=== PATIENT | female | born 1945 | race Caucasian/White ===

== ENCOUNTER 2016-12-20 10:52 | Emergency (ER) | payer MEDICARE ==
[~2016-12-20] VITALS: Ht 170.2 cm; Wt 101.0 kg
[~2016-12-20 10:52] MED LIST: LATA.005%O EACH EYE; LISI-363 PO; LYRI50CA2 PO; OXYC1SOL5 PO; PRIL20TA2 PO; RIVA10 PO; Z.0.COMMODE-3:1; Z.0.WALKERFRONT
[2016-12-20 11:17] VITALS: BP 155/66; PULSE 81; RESP 16; TEMP 97.6; O2SAT 94
[2016-12-20] MEDS ORDERED: LISI-515 PO (11:42)
[2016-12-20] MEDS ORDERED: LACTCAP8 PO (11:42)
[2016-12-20] MEDS ORDERED: GABA300C5 PO (11:42)
[2016-12-20] MEDS ORDERED: OMEP40CA2 PO (11:42)
[2016-12-20] MEDS ORDERED: MULT-65 PO (11:42)
--- NOTE | 2016-12-20 12:22 | RADRPT ---
EXAM DATE/TIME: 12/20/2016 12:07 [place] COMPARISON: No previous studies available for comparison. INDICATIONS : Fell walking her dog, left elbow pain, limited ROM MEDICAL HISTORY : None. SURGICAL HISTORY : None. ENCOUNTER: Initial ACUITY: 1 day PAIN SCORE: 8/10 LOCATION: Left Elbow FINDINGS: There is an acute radial head fracture with approximately 2 mm of depression and step-off. The fractu re fragment is off of the lateral aspect of the radial head and shows some lateral downsloping is als o approximately 3 mm . Other bones of the left elbow are intact. Joint effusion noted. CONCLUSION: Depressed and laterally downsloping radial head fracture with approximately 2 mm of step-off and 3 mm of separation. Taurus Vaughn MD on December 20, 2016 at 12:18 Board Certified Radiologist. This report was verified electronically.
--- NOTE | 2016-12-20 12:39 | PD ---
HPI Chief Complaint: Fall Time Seen by Provider: 11:23 Travel History International Travel<30 days: No Contact w/Intl Traveler<30days: No Traveled to known affect area: No History of Present Illness HPI 71 year old female with left elbow pain s/p mechanical fall today. No head injury. No LOC. Denies any other injury. Denies headache, chest pain, SOB, ABD pain, paraesthesia or weakness in the extremities. symptoms severity moderate. Worse with movement & relieved with rest. PFSH Past Medical History Hx Anticoagulant Therapy: No Arthritis: Yes Cancer: No Cardiovascular Problems: No Diabetes: No Diminished Hearing: No Endocrine: No GERD: Yes Glaucoma: No Genitourinary: No Hepatitis: No Hiatal Hernia: No Hypertension: Yes Immune Disorder: No Musculoskeletal: Yes (ARTHRITIS) Neurologic: Yes (LEFT FOOT NEUROPATHY) Psychiatric: No Reproductive: No Respiratory: No Seizures: No Thyroid Disease: No Tetanus Vaccination: > 5 Years Influenza Vaccination: Yes Menopausal: Yes Past Surgical History AICD: No Eye Surgery: Yes (EXC. PTERYGIUM RIGHT EYE) Joint Replacement: Yes (LEFT KNEE) Pacemaker: No Social History Alcohol Use: Yes (RARELY) Tobacco Use: No Substance Use: No Allergies-Medications (Allergen,Severity, Reaction): Coded Allergies: No Known Allergies (Verified Adverse Reaction, Unknown, 12/20/16) Reported Meds & Prescriptions Reported Meds & Active Scripts Active Reported Multi-Vitamin Daily (Multiple Vitamin) 1 Tab Tab Unknown Dose PO DAILY Probiotic (Lactobacillus Acidophilus) 10 Billion Cell Cap Unknown Dose PO TIDAC Omeprazole 40 Mg Cap 40 Mg PO DAILY Lisinopril 20 Mg Tab 20 Mg PO DAILY Gabapentin 300 Mg Cap Unknown Dose PO DAILY Review of Systems Except as stated in HPI: all other systems reviewed are Neg Physical Exam Narrative GENERAL: alert well appearing female SKIN: Warm and dry. HEAD: Normocephalic. EYES: No scleral icterus. No injection or drainage. NECK: Supple, trachea midline. No JVD or lymphadenopathy. CARDIOVASCULAR: Regular rate and rhythm without murmurs, gallops, or rubs. RESPIRATORY: Breath sounds equal bilaterally. No accessory muscle use. GASTROINTESTINAL: Abdomen soft, non-tender, nondistended. MUSCULOSKELETAL: No cyanosis, or edema. LUE: pain with supination & pronation of the elbow. Mild tenderness. No deformity. Normal Sensation. 2+ distal pulses. BACK: Nontender without obvious deformity. No CVA tenderness. Data Data Last Documented VS Vital Signs Date Time Temp Pulse Resp B/P (MAP) Pulse Ox O2 Delivery O2 Flow Rate FiO2 12/20/16 11:28 18 94 Room Air 12/20/16 11:17 97.6 81 155/66 (95) Orders Orders Elbow, Complete (4 Vws) (12/20/16 ) Splint Or Brace Apply/Monitor (12/20/16 12:27) MDM Medical Decision Making Medical Screen Exam Complete: Yes Emergency Medical Condition: Yes Differential Diagnosis radial head fx, ulna fx, contusion, sprain Narrative Course 71 year old female with left elbow pain s/p fall today. She denies head injury or LOC. She denies any other injury. On exam pain with supination & pronation of the elbow. Mild tenderness. No deformity. Normal Sensation. xray show nondisplaced radial head fracture. Patient splinted. advised to follow up with ortho. She declines pain medication. Diagnosis Primary Impression: Radial head fracture, closed Qualified Codes: S52.125A - Nondisplaced fracture of head of left radius, initial encounter for closed fracture Referrals: Nnamdi Sosa MD, Mark C. MD Additional Instructions: Wear the splint until follow up with ortho ice & elevate the extremity take tylenol or motrin as needed. Take ultram for severe pain return if you develop new or worsening symptoms Disposition: 01 DISCHARGE HOME Condition: Stable Precious Pratt Dec 20, 2016 12:39
== END 2016-12-20 13:05 | disposition home or self-care (01) ==
LOC: PHEFT 10:52
DX: S52.125A Nondisplaced fracture of head of left radius, initial encounter for closed fracture (principal); W19.XXXA Unspecified fall, initial encounter; Y93.K1 Activity, walking an animal
CPT/HCPCS: 29105; 73080

== ENCOUNTER 2017-09-30 05:34 | Inpatient (IN) ==
[2017-09-30] MEDS ORDERED: Sugammadex Inj 200 MG/2 ML Vial IV.PUSH ONE (06:25)
[2017-09-30] MEDS ORDERED: Dexamethasone Inj 20 MG/5 ML Vial IV.PUSH ONE (06:26)
[2017-09-30] MEDS ORDERED: ceFAZolin 2 GM Premix Inj 2 GM/100 ML BAG IV.SIG ONE (06:29)
[2017-09-30] MEDS ORDERED: Dexamethasone Inj 20 MG/5 ML Vial ONE (06:29)
[2017-09-30] MEDS ORDERED: Metoprolol Tartrate 25 MG Tablet PO SCH (06:30)
[2017-09-30] MEDS ORDERED: Chlorhexidine Gluconate 2% 1 Pack (2 Cloths) TOPICAL SCH (06:30)
[2017-09-30] MEDS ORDERED: Chlorhexidine 4% Topical 120 APPLIC/120 ML Bottle TOPICAL SCH (06:30)
[2017-09-30] MEDS ORDERED: Sodium Chlor 0.9% Inj 250 ML ONE (06:30)
[2017-09-30] MEDS ORDERED: Sodium Chlor 0.9% Inj 73.07 ML, Ropivacaine 0.5% PF Inj 24.63 ML, Ketorolac Inj 30 MG, ... P-ARTICULR SCH ×5 (06:30)
[2017-09-30] MEDS ORDERED: Vancomycin Inj 1,000 MG in Sodium Chlor 0.9% Inj 250 ML IV.SIG SCH (06:33)
[2017-09-30] MEDS: fentaNYL Citrate Inj 100 MCG/2 ML Ampul ONE ×2 (06:40→09:05)
[2017-09-30] MEDS ORDERED: TRANEXAMIC ACID IV.SIG SCH ×2 (07:00→10:00)
[2017-09-30] MEDS ORDERED: ceFAZolin Inj 2,000 MG in Sodium Chlor 0.9% Inj 80 ML IV.SIG SCH (07:00)
[2017-09-30] MEDS ORDERED: Sodium Chlor 0.9% Inj 500 ML IV.SIG SCH (07:00)
[2017-09-30] MEDS ORDERED: SODIUM CHLOR 0.9% IV.SIG SCH ×2 (07:00→10:00)
--- NOTE | 2017-09-30 07:03 | P.DCO ---
- Physical Therapy Physical Therapy: Gait training, Transfer training, bed to chair Knee: Total knee Right Lower Extremity Weight Bearing: Weight bearing as tolerated Right Lower Extremity Range of Motion: Active ROM - Nursing Nursing: Patrica madera Dressing changes: Do not change dressing Additional instructions: First dressing change in the office - Certification Need for Home Health services: I have seen patient Chelsea Early on 09/30/17. My clinical findings support the need for the requested home health care services because: Need for Home Health Services: Limited ability to care for self, High risk of falls Homebound Certification: I certify that my clinical findings support that this patient is homebound because: Homebound Certification: Post-op weakness, Unsteady gait/balance
[2017-09-30] MEDS ORDERED: Aluminum/Magnesium/Simethacone Susp 30 ML UDC PO PRN (08:40)
[2017-09-30] MEDS ORDERED: Morphine Inj 4 MG/ML Vial IV.PUSH PRN (08:40)
[2017-09-30] MEDS ORDERED: Bisacodyl 10 MG Supp RECTAL PRN (08:40)
[2017-09-30] MEDS ORDERED: Post-op Orders (for Pharmacy) OTHER STA (08:40)
--- NOTE | 2017-09-30 08:45 | P.OP ---
- Preoperative Diagnosis (1) Osteoarthritis of right knee - Postoperative Diagnosis (1) Osteoarthritis of right knee Date of procedure: 09/30/17 Procedure: Right knee severe osteoarthritis Surgeon: Aston Heredia MD Pantograph Transferrer: TITO Borges The surgical procedure was assisted by my Advanced Registered Nurse Practitioner. My ANIMAL SITTER presence was necessary throughout this case for the manipulation and positioning of the surgical extremity. My ANIMAL SITTER was assisting me throughout the duration of this procedure. The skill set of an Advance Registered Nurse Practitioner was medically necessary to complete this procedure. During the surgical case, the surgical instrument repair specialist was working at the back table and the Advance Registered Nurse Practitioner was directly assisting me. Operation and Findings: IMPLANTS: DePuy Attune: Patella: size 32. Femur, posterior stabilized size 5. Tibia, rotating platform size 5. Tibial insert, rotating platform, posterior stabilized size 6 mm thickness. ESTIMATED BLOOD LOSS: 150 cc TOURNIQUET TIME: 32 minutes at 250 mmHg pressure. JUSTIFICATION FOR PROCEDURE: The patient has end-stage osteoarthritis to the knee. There is an attached conservative measures pathway form in the chart that describes the nonoperative measures that were undertaken prior to consideration of surgical management. The patient understood the risks and benefits of surgical management. See my office notes for further details PROCEDURE: The patient was brought back to the operative theatre. Adequate anesthesia was obtained. The patient received intravenous vancomycin and Ancef. The lower extremity was prepped and draped in the usual sterile fashion.The leg was exsanguinated, the tourniquet was raised. A standard anterior incision was performed followed by medial parapatellar arthrotomy was performed. End-stage arthritis was identified. Osteotomy of the patella was performed. We drilled holes for the patella. We trialed the patella component. We placed an intramedullary guide into the distal femur. We ultimately resected 13 mm off of the distal femur in 5 degrees of valgus. The remnants of the ACL and PCL were resected. Osteotomy of the proximal tibia was performed, resecting 5 mm off of the medial side. This was done with 3 degrees of posterior slope using an extramedullary guide. The distal end of the guide was placed in the mid aspect of the ankle. The femur was sized, and four chamfer cuts were completed in 3 of external rotation. We then cut the central box in the distal femur to replace the PCL. We resected the remnants of the menisci and removed osteophytes off of the femur and tibia. We then trialed the knee. We punched the tibia for the keel, and then used standard technique to cement in components. Excess cement was removed. We trialed the knee again and the final polyethylene thickness was chosen to provide extension to 0 degrees, and flexion of 140 degrees to gravity. The ligaments were appropriately balanced. Lateral release was not necessary to obtain excellent patellofemoral tracking. The tourniquet was released and adequate hemostasis was obtained. An intra- articular injection of a ropivacaine cocktail was injected. The posterior knee was inspected for excess cement, which was removed. The final polyethylene was put into position after thorough irrigation. We then closed deep fascia with a #2 Stratafix followed by skin with 2-0 Vicryl followed by Dermabond dressing. Postop plan is to weight-bear as tolerated. DVT prophylaxis will be performed with SCDs, GLEN rios, early mobilization, and Lovenox followed by aspirin.
[2017-09-30] MEDS ORDERED: MULTIVITAMIN PO SCH (09:00)
[2017-09-30] MEDS ORDERED: *Meperidine Inj 25 MG/ML Vial PERIprocedural Use ONLY ONE (09:02)
[2017-09-30] MEDS ORDERED: fentaNYL Citrate Inj 100 MCG/2 ML Ampul ONE (09:07)
[2017-09-30] MEDS ORDERED: *morphine SULFATE 4 MG/ML PERIprocedure ONLY ONE ×2 (09:22→09:50)
[2017-09-30] MEDS: Sod Chloride 0.9% Inj 1,000 ML IV.CONT SCH (09:30)
[2017-09-30] MEDS: *morphine SULFATE 4 MG/ML PERIprocedure ONLY ONE (09:31)
[2017-09-30] MEDS: Multivitamin/Minerals Therapeutic Tablet PO SCH ×2 (09:57→20:17)
[2017-09-30] MEDS: Lisinopril 20 MG Tablet PO SCH (09:57)
[2017-09-30] MEDS ORDERED: HYDROmorphone PF Inj 2 MG/ML Vial ONE (10:04)
[2017-09-30] MEDS: Gabapentin 300 MG Capsule PO SCH ×2 (10:09→20:17)
--- NOTE | 2017-09-30 10:12 | XR ---
EXAM DATE: 09/30/2017 9:59 AM EDT AGE/SEX: 72 years / Female INDICATIONS: Post op right total knee arthroplasty. CLINICAL DATA: This is the patient's initial encounter. Patient reports that signs and symptoms have been present for 1 day and indicates a pain score of Nonresponsive. MEDICAL/SURGICAL HISTORY: None. None. COMPARISON: No prior exams available for comparison. FINDINGS: Right total knee arthroplasty. All 3 components are appropriately positioned without fracture. CONCLUSION: Appropriate postoperative appearance of the right knee status post total arthroplasty. Electronically signed by: Sampson Siu MD 09/30/2017 10:10 AM EDT
[2017-09-30] MEDS: Senna/Docusate Sodium 8.6/50 MG Tablet PO SCH (10:14)
[2017-09-30] MEDS ORDERED: Lidocaine PF 1% Inj 5 ML Syringe INFILTRATN ONE (12:00)
[2017-09-30] MEDS ORDERED: Latanoprost 0.005% Opth Drops 2.5 ML Bottle EACH EYE SCH (18:00)
[2017-09-30] MEDS ORDERED: Zolpidem Tartrate 5 MG Tablet PO PRN (21:00)
[2017-10-01] MEDS: Sod Chloride 0.9% Inj 1,000 ML IV.CONT SCH (00:54)
[2017-10-01] MEDS: Senna/Docusate Sodium 8.6/50 MG Tablet PO SCH ×2 (00:54→09:18)
[2017-10-01 05:13] LABS: Hematocrit 31.4 % (35.0-46.0); Hemoglobin 10.6 gm/dL (11.6-15.3)
--- NOTE | 2017-10-01 07:13 | P.PNOP ---
Subjective Interval history: The patient is resting in bed and in no acute distress. The patient reports minimal pain to the knee however she is having some calf pain. The patient has been ambulatory without difficulty. Physical Exam Vital signs: Vital Signs 09/30/17 09:02 09/30/17 09:15 09/30/17 09:30 Temperature 97.6 F Pulse Rate 109 H 93 H 91 H Respiratory Rate 17 13 13 Blood Pressure 124/91 H 138/66 Pulse Oximetry 98 97 95 09/30/17 09:33 09/30/17 09:45 09/30/17 09:52 Temperature Pulse Rate 86 Respiratory Rate 15 12 17 Blood Pressure 140/69 Pulse Oximetry 98 09/30/17 10:00 09/30/17 10:02 09/30/17 10:30 Temperature 98 F Pulse Rate 83 88 Respiratory Rate 12 15 12 Blood Pressure 137/65 138/72 Pulse Oximetry 97 99 09/30/17 11:00 09/30/17 12:00 09/30/17 12:30 Temperature 97.4 F L 97.7 F Pulse Rate 86 98 H 92 H Respiratory Rate 12 12 18 Blood Pressure 134/65 147/70 H 148/71 H Pulse Oximetry 96 96 95 09/30/17 20:00 09/30/17 20:20 10/01/17 00:00 Temperature 97.9 F 98.0 F Pulse Rate 86 89 Respiratory Rate 17 16 16 Blood Pressure 142/67 H 139/65 Pulse Oximetry 96 94 L 10/01/17 00:30 10/01/17 04:00 10/01/17 06:13 Temperature 97.8 F Pulse Rate 91 H Respiratory Rate 16 16 16 Blood Pressure 132/60 Pulse Oximetry 95 Intake & Output 09/30/17 10/01/17 10/01/17 18:59 06:59 18:59 Intake Total 1970 / 1970 300 / 300 Output Total 150 / 150 Balance 1820 / 1820 300 / 300 Intake: IV 470 / 470 300 / 300 Cyklokapron Inj 1,027 MG In NS 220 / 220 Inj 100 ML @ 220.54 mls/hr IV. SIG CHOIR SINGER ÁNGEL Rx#:[id number] Vancomycin Inj 1,000 MG In NS 250 / 250 Inj 250 ML @ 200 mls/hr IV.SIG CHOIR SINGER ÁNGEL Rx#:[id number] Ancef Inj 1,000 MG In NS Inj 300 / 300 100 ML @ 200 mls/hr IV.SIG Q6H ÁNGEL Rx#:[id number] Anesthesia Amount 1500 / 1500 Output: Estimated Blood Loss 150 / 150 Other: # Voids 4 Date of Last Bowel Movement 09/30/17 Narrative: The patient's dressing is clean, dry, and intact. EHL/TA/G are intact. 2+ pedal pulse. The patient's calf is moderately tender. There is minimal warmth to the calf there is no erythema to the calf. Sensation is intact to light touch distally. Results - Labs CBC & Chem 7: 10/01/17 04:07 Laboratory Results - last 24 hr 09/30/17 10/01/17 06:12 04:07 Hgb 10.6 L Hct 31.4 L Blood Type O Positive Blood Type Recheck Not needed Antibody Screen Negative - Imaging Impressions Knee X-Ray 09/30/17 08:39 CONCLUSION: Appropriate postoperative appearance of the right knee status post total arthroplasty. - Procedures Right total knee arthroplasty Assessment and Plan - Problem List (1) Localized primary osteoarthritis of lower leg Code(s): M17.10 - Unilateral primary osteoarthritis, unspecified knee Status: Acute (2) Status post total knee replacement, right Code(s): Z96.651 - Presence of right artificial knee joint Status: Acute - Assessment and Plan POD #1: [Right] total knee arthroplasty 1. Weightbearing as tolerated on [right] lower extremity. 2. Lovenox followed by aspirin for DVT prophylaxis. 3. Ice as needed for swelling. 4. Stable per ortho for discharge to home health if ultrasound is negative. 5. The patient will follow up with Dr. Heredia and/or TITO Lima as previously scheduled. 6. Ultrasound of the right lower extremity to rule out DVT.
[2017-10-01] MEDS ORDERED: Enoxaparin Inj 40 MG/0.4 ML Syringe SQ SCH (08:00)
[2017-10-01] MEDS ORDERED: Dexamethasone Inj 20 MG/5 ML Vial IV.PUSH ONE (08:00)
--- NOTE | 2017-10-01 08:11 | US ---
EXAM DATE: 10/01/2017 8:00 AM EDT AGE/SEX: 72 years / Female INDICATIONS: Right leg pain. CLINICAL DATA: This is the patient's initial encounter. Patient reports that signs and symptoms have been present for 1 day and indicates a pain score of 5/10. MEDICAL/SURGICAL HISTORY: Hypertension. Glaucoma. Nerve pain. . Bladder surgery. Total right h ip replacement. Eye surgery. Total knee arthroplasty. COMPARISON: No prior exams available for comparison. TECHNIQUE: Venous ultrasound of both lower extremities was performed from the inguinal ligament to t he proximal calf. Real-time, color Doppler and spectral tracing, compression and augmentation techni ques were used. FINDINGS: Normal compression of the deep venous system from the inguinal region to the proximal calf . No echogenic clot is seen. Normal response of the venous system to augmentation and respiration. CONCLUSION: The study is negative for lower extremity deep venous thrombosis. Electronically signed by: Taurus Anglin MD 10/01/2017 8:10 AM EDT
[2017-10-01 08:20] VITALS: BP 125/60; PULSE 71; RESP 14; TEMP 97.2; O2SAT 96
[2017-10-01] MEDS: Gabapentin 300 MG Capsule PO SCH (09:18)
[2017-10-01] MEDS: Lisinopril 20 MG Tablet PO SCH (09:19)
[2017-10-01] MEDS: Multivitamin/Minerals Therapeutic Tablet PO SCH (09:20)
--- NOTE | 2017-10-04 20:48 | P.DS ---
Date of admission: 09/30/17 05:34 Primary care physician: Davey Brady DO Attending physician on discharge: Aston Heredia Anticipated date of discharge: 10/01/17 Brief History from admission: The patient has a history of right knee severe osteoarthritis and was admitted to have a right total hip arthr oplasty. DS: Diagnosis - Discharge Diagnosis (1) Localized primary osteoarthritis of lower leg Status: Acute Diagnosis: Principal (2) Status post total knee replacement, right Status: Acute Diagnosis: Principal DS: Summary Hospital Course: The patient was admitted to the hospital for severe osteoarthritis of the [right ] knee to have a [right] total knee arthroplasty. The patient's surgery went well with no complication. The patient is on a [regular] diet. The patient's DVT prophylaxis includes use of [Lovenox followed by aspirin]. The patient is weightbearing as tolerated. The patient was discharged [home with home health] and will follow up in the office with Dr. Heredia and/or TITO Lima as previously scheduled. - Time Spent with Patient Total time spent providing and/or coordinating discharge services: Greater than 30 minutes Exam Narrative: See the last progress note for physical exam. Results Procedures completed during hospitalization: Right total knee arthroplasty - Impressions ITS Impressions Knee X-Ray 09/30/17 08:39 CONCLUSION: Appropriate postoperative appearance of the right knee status post total arthroplasty. Venous Doppler Study 10/01/17 07:13 CONCLUSION: The study is negative for lower extremity deep venous thrombosis. Discharge Plan - Discharge Disposition Patient Disposition: Disch W/Home Health Service - Discharge Condition Condition: Stable - Discharge Order Discharge Orders: Discharge Order (Routine); Ordered 09/30/17 Ordered By: Blake Garibay - Discharge Details Anticipated Discharge Date: 10/01/17 - Physicians Team Primary Care Provider: Davey Brady Attending Provider: Aston Heredia Other Providers: [facility], - Rxs /Orders / Referrals /Forms Prescriptions: Continue gabapentin 300 mg Capsule 300 mg PO BID latanoprost 0.005 % Drops 1 drp OPHTHALMIC (EYE) QPM lisinopril 20 mg Tablet 20 mg PO DAILY multivitamin [Daily Multi-Vitamin] Tablet 1 tab PO DAILY omeprazole 40 mg Capsule,Delayed Release(Dr/Ec) 40 mg PO DAILY Discontinued aspirin [Aspir-Low] 81 mg Tablet,Delayed Release (Dr/Ec) 81 mg PO DAILY meloxicam [Mobic] 15 mg Tablet 15 mg PO DAILY Ambulatory Orders / Order Sets / DME: Adjustable Commode 3-in-1 (1 each) (Routine) Location: Determined by Patient Ordered By: Blake Garibay CPM - Continuous Passive Motion Machine (1 each) (Routine) Location: Determined by Patient Ordered By: Blake Garibay Walker With Front Wheels (1 each) (Routine) Location: Determined by Patient Ordered By: Blake Garibay Referrals: Aston Heredia MD [Physician] - See Instructions (F/U in the office with Dr. Heredia or TITO Lima as previously scheduled.) Davey Brady DO [Primary Care Provider] - See Instructions - Discharge Instructions Patient Printed Instructions: Knee Replacement (DC)
== END 2017-10-01 10:51 | disposition home health service (06) ==
LOC: HSDI 05:34 → N06 12:19
PROVIDERS: ADMIT Orthopaedic Surgery; ATTEND Orthopaedic Surgery